=== PATIENT | female | born 1985 | race Two or more races ===

== ENCOUNTER 2019-01-25 10:44 | Day surgery (SDC) | payer MEDICAID ==
[2019-01-18 11:35] LABS: PLATELET COUNT 296 10^3/uL (150-400)
[2019-01-25] MEDS ORDERED: LIDOCAINE 1% 2 ML INJ ID PRN (10:56)
[2019-01-25] MEDS ORDERED: LR 1,000 ML IV ONE (10:56)
[2019-01-25] MEDS ORDERED: LIDOCAINE 1% 5 ML SDV ONE (10:57)
[2019-01-25] MEDS ORDERED: BUPIVACAINE 0.5% 30 ML SDV ONE (10:58)
--- NOTE | 2019-01-25 11:18 | PDHPUP ---
History & Physical Update H&P update statement: This history and physical update is based on an assessment of the patient which was completed after admission or registration (within 24 hours), but prior to the surgery/procedure. H&P update: H&P reviewed & patient examined, no change in patient's condition since H&P completed
[2019-01-25] MEDS ORDERED: MIDAZOLAM 2 MG/2 ML VIAL IVP ONE (11:25)
--- NOTE | 2019-01-25 11:27 | PDANEPAE ---
ANE History of Present Illness l drew-thyroidectomy ANE Past Medical History - Cardiovascular History Hx Hypertension: Yes Hx Arrhythmias: No Hx Chest Pain: No Hx Coronary Artery / Peripheral Vascular Disease: No Hx CHF / Valvular Disease: No Hx Palpitations: No Cardiovascular History Comment: states past mi - Pulmonary History Hx COPD: No Hx Asthma/Reactive Airway Disease: No Hx Recent Upper Respiratory Infection: No Hx Oxygen in Use at Home: No Hx Sleep Apnea: No Sleep Apnea Screening Result - Last Documented: Negative - Neurologic History Hx Cerebrovascular Accident: No Hx Seizures: No Hx Dementia: No - Endocrine History Hx Diabetes: No Obesity: mild - Renal History Hx Renal Disorders: No - Liver History Hx Hepatic Disorders: No - Neurological & Psychiatric Hx Hx Neurological and Psychiatric Disorders: Yes Neurological / Psychiatric History Comment: anxiety - Cancer History Hx Cancer: No - Congenital Disorder History Hx Congenital Disorders: No - GI History GERD: mild Hx Gastrointestinal Disorders: Yes Gastrointestinal History Comment: gastric ulcer - Other Health History Other Health History: bruised from biopsy. 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 upper denture. Anemia - Chronic Pain History Chronic Pain: Yes (hands) - Surgical History Prior Surgeries: 3 c-sections ANE Review of Systems Review of Systems: - Exercise capacity Exercise capacity: >=4 METS METS (RN): 4 METS ANE Patient History - Allergies Allergies/Adverse Reactions: bee venom protein (honey bee) Allergy (Verified 01/25/19 11:06) Swelling/neck,face,throat Fish Containing Products [fish] Allergy (Verified 01/25/19 11:06) Swelling/neck,face,throat - Home Medications Home medications: home medication list seen and reviewed Home Medications: Iron 01/17/19 [Last Taken 01/25/19 07:00] Labetalol HCl 01/17/19 [Last Taken 01/25/19 07:00] Metoprolol Tartrate 01/17/19 [Last Taken 01/25/19 07:00] Pantoprazole Sodium 01/17/19 [Last Taken 01/25/19 07:00] Sucralfate 01/17/19 [Last Taken 01/25/19 07:00] - NPO status NPO Status: no food or drink >8 hours - Anes Hx Anes Hx: no prior problems - Smoking Hx Smoking Status: Former smoker - Family Anes Hx Family Hx Anesthesia Complications: none ANE Labs/Vital Signs - Labs Result Diagrams: 01/18/19 10:59 - Vital Signs Height: 162.56 cm Weight: 87.09 kg ANE Physical Exam - Airway Mallampati Score: Class 2 Mouth exam: dentures - Pulmonary Pulmonary: no respiratory distress - Cardiovascular Cardiovascular: regular rate and rhythym - ASA Status ASA Status: II ANE Anesthesia Plan Anesthesia Plan: general endotracheal anesthesia
[2019-01-25] MEDS ORDERED: PROPOFOL 200 MG/20 ML VIAL ONE (11:30)
[2019-01-25] MEDS ORDERED: fentaNYL 100 MCG/2 ML INJ ONE ×3 (11:30→13:59)
[2019-01-25] MEDS ORDERED: DEXAMETHASONE 4 MG/ML VIAL ONE (11:31)
[2019-01-25] MEDS ORDERED: LIDOCAINE 2% 5 ML SDV ONE (11:31)
[2019-01-25] MEDS ORDERED: SUCCINYLCHOLINE CHLORIDE 200 MG/10 ML SYR IVP ONE (11:31)
[2019-01-25] MEDS ORDERED: ONDANSETRON 4 MG/2 ML VIAL ONE ×2 (11:31→14:22)
[2019-01-25] MEDS ORDERED: ROCURONIUM 50 MG/5 ML VIAL ONE ×2 (11:31→13:03)
[2019-01-25] MEDS ORDERED: KETOROLAC 30 MG/1 ML SDV ONE (11:31)
[2019-01-25] MEDS ORDERED: SUGAMMADEX SODIUM 200 MG/2 ML VIAL IVP ONE (13:32)
[2019-01-25] MEDS ORDERED: ALBUTEROL 3 ML DEYVIAL IH PRN (13:37)
[2019-01-25] MEDS ORDERED: ONDANSETRON 4 MG/2 ML VIAL IVP PRN (13:37)
[2019-01-25] MEDS ORDERED: LR 500 ML IV PRN (13:37)
[2019-01-25] MEDS ORDERED: NALOXONE HCL 0.4 MG/ML INJ IVP PRN ×2 (13:37→13:42)
[2019-01-25] MEDS ORDERED: HYDROmorphONE/DILAUDID 1 MG/ML INJ IVP PRN (13:37)
[2019-01-25] MEDS ORDERED: PROMETHAZINE HCL 25 MG/ML INJ IVP PRN (13:37)
[2019-01-25] MEDS ORDERED: LABETALOL HCL 5 MG/ML 20 ML MDV IVP PRN (13:42)
--- NOTE | 2019-01-25 13:43 | POSTOPPROG ---
Post Op Note Date of Operation: 01/25/19 Surgeon: Nickolas Ochoa Grave Digger: Venecia Almonte PA-C Anesthesiologist: Chris Anesthesia: GET(General Endotracheal) Pre-op Diagnosis: Left thyroid goiter Post-op Diagnosis: same Procedure: Left throidectomy Findings: 3cm nodule, inflammation Inf/Abcess present in the surg proc area at time of surgery?: No EBL: Minimal Bowel Protocol: N/A Clean Closure Performed: N/A Specimen(s): Left thyroid lobe
[2019-01-25] MEDS ORDERED: HYDROCODONE/APAP 5/325 TAB PO PRN (13:45)
--- NOTE | 2019-01-25 13:56 | POSTANESTH ---
Post Anesthetic Evaluation Cardiovascular Status: Normal, Stable Respiratory Status: Normal, Stable Level of Consciousness/Mental Status: Can Participate in Eval Pain Control: Adequate, Prn Tx Ordered Nausea/Vomiting Control: Adequate, Prn Tx Ordered Complications Possibly Related to Anesthesia: None Noted
[2019-01-25] MEDS ORDERED: HYDROmorphONE/DILAUDID 1 MG/ML INJ ONE (13:59)
[2019-01-25] MEDS: fentaNYL 100 MCG/2 ML INJ IVP PRN ×2 (14:01→14:16)
[2019-01-25] MEDS ORDERED: HYDROCODONE/APAP 5/325 TAB ONE (14:32)
[2019-01-25 16:45] VITALS: BP 107/79
--- NOTE | 2019-01-26 11:22 | SUROPNOTE ---
[facility] Operative Report - Surgery Date of surgery: 01/25/2019 Indications for surgery: This is a 33-year-old patient presents to the hospital for elective left hemithyroidectomy for enlarging nodule with dysphasia. The patient had a biopsy of the right nodule last week which was benign. After risks benefits and alternatives to surgery had been outlined his and verbal confirmation of understanding written consent was obtained. Preop diagnosis: Thyroid goiter left with dominant nodule Postop diagnosis: Same Procedure: Left hemithyroidectomy Surgeon: Gabriela Watch Assembler: Anika Almonte PA-C Anesthesiologist: Dr. Perez Specimen: Left thyroid stitch at superior pole EBL 20 mL Details of the procedure: The patient was brought to the operating room after induction of endotracheal anesthesia supine position her chest and neck were prepped with chlorhexidine and draped sterilely time-out procedure was performed according institutional standards. Local anesthesia the neck was infused in skin and subcutaneous tissues of the of neck and along with a block along the sternocleidomastoid. Curvilinear incision was made in the lines of Langerhans deep electrocautery platysma was divided and flaps were created superiorly the midline rhaphe was divided and the thyroid was brought into field dissection a large thyroid nodules noted in the inferior pole of the left thyroid lobe. Thyroid was brought into the field dissection parathyroids identified inferiorly and superiorly kept out of field dissection the recurrent laryngeal nerve was identified and the superior and inferior pole were then controlled using pizoelectric energy. The thyroid was then elevated off the trachea using blunt , sharp and judicious use of electrocautery dissection. The isthmus was divided using Harmonic scalpel and a stitch was placed superiorly prior to passing off the specimen. The needle instrument sponge counts verified to be correct. Hemostasis was meticulous. The field was coated with Paul hemostatic agent and closed using 3 0 Polysorb and 4 Monocryl. Needle instrument sponge counts were verified correct a 2nd time Dermabond was applied. The patient was awakened extubated and taken to the recovery room in stable condition no immediate complications
== END 2019-01-25 16:30 | disposition home or self-care (01) ==
LOC: FSGY 10:44
PROVIDERS: ATTEND Surgery
PROC: 0GTG0ZZ Resection of Left Thyroid Gland Lobe, Open Approach (ICD-10-PCS; principal; 2019-01-25 13:00)
DX: E04.2 Nontoxic multinodular goiter (principal); I10 Essential (primary) hypertension; Z87.891 Personal history of nicotine dependence
CPT/HCPCS: J0330; J1100; J1170; J1885; J2250; J2405; J2704; J3010